=== PATIENT | female | born 1955 | race Caucasian/White ===

== ENCOUNTER → 2023-09-18 | Day surgery (SDC) | payer MEDICARE ==
[2023-09-12 11:24] LABS: BASOPHILS # (AUTO) 0.1 (0.0-0.1); EOSINOPHILS # (AUTO) 0.2 (0.0-0.4); EOSINOPHILS % 2.7 % (0.0-6.0); HEMATOCRIT 40.8 % (34.2-44.1); HEMOGLOBIN 12.2 g/dL (12.0-16.0); LYMPHOCYTES # (AUTO) 1.9 (1.0-3.2); LYMPHOCYTES % 31.3 % (18.0-39.1); MEAN CORPUSCULAR HEMOGLOBIN 27.4 pg (28-32); MEAN CORPUSCULAR HGB CONC 29.9 g/dL (31-35); MEAN CORPUSCULAR VOLUME 91.7 fL (81-99); MONOCYTES # (AUTO) 0.5 (0.2-0.8); MONOCYTES % 7.6 % (4.4-11.3); NEUTROPHILS # (AUTO) 3.4 (2.1-6.9); NEUTROPHILS % 57.2 % (38.7-80.0); PLATELET COUNT 305 x10e3/uL (140-360); RED BLOOD COUNT 4.45 x10e6/uL (3.6-5.1); RED CELL DISTRIBUTION WIDTH 19.4 % (11.7-14.4); WHITE BLOOD COUNT 5.91 x10e3/uL (4.8-10.8)
[~2023-09-18] MED LIST: ACETAMINOPHEN-1 EAC4 PO; BUPIVACAINE HCL 0.5% INJ 30 ML VIAL INJ ONE; DEXAMETHASONE SOD PHOS INJ 4 MG/ML SDV ONE; DEXMEDETOMIDINE HCL 2 ML ONE; FENTANYL CITRATE/PF 100MCG/2 ML INJ ONE; GLYCOPYRROLATE INJ 0.2 MG/ML VIAL ONE; HYDROMORPHONE 2MG/ML ONE; LIDOCAINE HCL 2% LOCAL INJ 5 ML SDV VIAL INJ ONE; METOCLOPRAMIDE HCL 10 MG/2ML VIAL ONE; MIDAZOLAM HCL 2 MG/2 ML VIAL ONE; MUPIROCIN 2% OINT 22 GM TUBE ONE; ONDANSETRON HCL INJ 2MG/ML 2ML 2 MG/ML VIAL ONE; PROPOFOL IV EMULSION 10 MG/ML 20 ML VIAL ONE; ROCURONIUM BROMIDE 10 MG/ML 5ML VIAL IV ONE; SEVOFLURANE INHAL SOLN 250 ML PEN BTL ONE; ZOLPIDEM TARTRAT5 MG PO; [UNRECOGNIZED DRUG - OTHER] TOP
[2023-09-18] MEDS: LACTATED RINGER'S 1,000 ML ONE (06:54)
[2023-09-18 10:39] VITALS: TEMP 97.4
[2023-09-18] MEDS: ACETAMINOPHEN 1000 MG/100 ML 100 ML IV ONE (11:25)
[2023-09-18 12:00] VITALS: BP 122/64; PULSE 64; RESP 17; O2SAT 98
[2023-09-18] MEDS: ONDANSETRON HCL 4 MG ORAL DISINTEGRATING TAB ONE (12:18)
== END | disposition home or self-care (01) ==
LOC: OR 06:01
PROVIDERS: ATTEND Plastic Surgery
DX: M79.3 Panniculitis, unspecified (principal); D64.9 Anemia, unspecified; Z91.013 Allergy to seafood; Z01.810 Encounter for preprocedural cardiovascular examination; Z01.812 Encounter for preprocedural laboratory examination; Z01.818 Encounter for other preprocedural examination; Z79.899 Other long term (current) drug therapy
CPT/HCPCS: 15830; 36415; 71046; 85025; 93005; J0131; J0690; J1170; J2250; J3010; J7121; Q0162; J1100; J2001; J2405; J2765